=== PATIENT | female | born 1975 | race Caucasian/White ===

== ENCOUNTER 2022-02-20 15:15 | Outpatient (CLI) | payer OTHER, SELFPAY ==
[2022-02-20 21:56] LABS: Alkaline Phosphatase* 68 U/L (40-150); Calcium* 8.9 mg/dL (8.4-10.6)
== END 2022-02-20 15:16 | disposition home or self-care (01) ==
PROVIDERS: PCP Physician Assistant Medical; Visit Provider Physician Assistant Medical
DX: M27.9 Disease of jaws, unspecified (principal)
CPT/HCPCS: 82310; 84075

== ENCOUNTER 2022-03-04 15:14 | Outpatient (CLI) | payer OTHER, SELFPAY ==
--- NOTE | 2022-03-04 15:30 | CRLHL7_ITS ---
For Patients: As a result of the Century Cures Act, medical imaging exams and procedure reports are released immediately into your electronic medical record. You may view this report before your referring provider. If you have questions, please contact your health care provider. Indication: right jaw bone lesion, seen on dentist xray Technique: MRI facial bones without contrast. Sagittal T1, axial T2 with and without fat suppression, axial diffusion-weighted, coronal T1, coronal STIR, and postcontrast fat suppressed T1 weighted sequences following administration of 15 cc Dotarem IV contrast. Comparison: None Findings: Unremarkable MRI of the visualized portions of the brain. No hydrocephalus. No suspicious extra-axial collection. Normal calvarial and skullbase bone marrow signal. Unremarkable temporomandibular joints. There is a 1.2 x 0.6 x 1.2 cm (AP x TR x CC) well-circumscribed focus of T2 hypointense signal in the right anterior mandibular body along the lingual surface abutting the cortex (series 4, image 24). There is no associated bone marrow edema. Unremarkable sublingual glands, submandibular glands, and parotid glands the mastoid air cells are clear. The orbits and their contents are unremarkable. Expected intracranial vascular flow voids are preserved. The nasopharynx, oropharynx and hypopharynx are unremarkable. Mild prominence of the palatine tonsils. The vallecula, epiglottis, and soft palate are unremarkable. The larynx is unremarkable. No evidence of acute inflammation in the neck. Multilevel cervical spondylosis. No evidence of diffusion restriction. The nasal septum is relatively midline. Trace mucosal thickening in the maxillary sinuses. No pathologically enlarged lymph nodes. Trace mucosal thickening in the left ethmoid air cells. Impression: 1. There is a 1.2 cm T1 and T2 hypointense well-circumscribed lesion in the lingual aspect of the right anterior mandibular body without associated bone marrow edema or enhancement. Findings likely due to nonspecific sclerotic lesion with no associated cystic component or enhancing lesion favored to represent a benign process. This can be further characterized with CT facial bones per 2. Otherwise unremarkable MRI of the neck. Dictated by Jcarlos Chung MD @ 03/05/2022 11:17:50 AM (Electronically Signed)
== END 2022-03-04 15:15 | disposition home or self-care (01) ==
LOC: MRI 15:15
PROVIDERS: PCP Physician Assistant Medical; Visit Provider Physician Assistant Medical
DX: M89.9 Disorder of bone, unspecified (principal)
CPT/HCPCS: 70543

== ENCOUNTER 2022-03-20 10:07 | Outpatient (CLI) | payer OTHER, SELFPAY ==
[2022-03-20 14:10] LABS: Chloride* 108 mmol/L (96-114); Potassium* 4.4 mmol/L (3.6-5.1); Sodium* 140 mmol/L (135-149)
[2022-03-20 14:13] LABS: Blood Urea Nitrogen* 11 mg/dL (5-24); Carbon Dioxide* 29 mmol/L (20-32); Cholesterol* 145 mg/dL (90-199); Creatinine* 0.7 mg/dL (0.5-1.5); Estimated Glomerular Filt Rate 109 ml/min; Triglycerides* 62 mg/dL (40-149)
[2022-03-20 14:14] LABS: HDL Cholesterol* 53 mg/dL (>=50); LDL Cholesterol Calculated 80 mg/dL (<100)
[2022-03-20 14:29] LABS: Glucose* 92 mg/dL (60-115)
== END 2022-03-20 10:08 | disposition home or self-care (01) ==
PROVIDERS: PCP Physician Assistant Medical; Visit Provider Physician Assistant Medical
DX: Z00.00 Encounter for general adult medical examination without abnormal findings (principal); M27.9 Disease of jaws, unspecified; Z13.6 Encounter for screening for cardiovascular disorders
CPT/HCPCS: 80048; 80061

== ENCOUNTER 2022-03-28 12:48 | Outpatient (CLI) | payer OTHER, SELFPAY ==
--- NOTE | 2022-03-28 13:00 | CRLHL7_ITS ---
For Patients: As a result of the Century Cures Act, medical imaging exams and procedure reports are released immediately into your electronic medical record. You may view this report before your referring provider. If you have questions, please contact your health care provider. INDICATION: Further characterized right jaw lesion. TECHNIQUE: CT of the face without contrast. Coronal reconstructions are included. COMPARISON: Orbital MRI from 03/04/2022 FINDINGS: Re-demonstration of the lesion within the right anterior mandibular body, which measures up to 14 millimeters in diameter. It is diffusely sclerotic with irregular margins and no lytic/destructive change. No expansile component. The adjacent tooth roots are well situated. A smaller but similar focus of sclerosis is present within the left-sided posterior mandible. No acute osseous abnormalities involving the maxillofacial bones. The orbital contents are Normal in appearance. The sinonasal cavities are clear. The nasal septum is relatively midline. The visualized portions of the brain are normal in appearance. IMPRESSION: 1. Sclerotic lesions within the right and left mandible without any lytic/destructive change. These most likely reflect benign abnormalities with differential considerations including idiopathic osteosclerosis or bone island. 2. The paranasal sinuses are clear and there are no acute abnormalities involving the maxillofacial bones. Please note that all CT scans at this facility use dose modulation, iterative reconstruction, and/or weight-based dosing when appropriate to reduce radiation dose to as low as reasonably achievable. Dictated by Valente Romero MD @ 03/29/2022 12:56:45 PM (Electronically Signed)
== END 2022-03-28 12:49 | disposition home or self-care (01) ==
LOC: CT 12:48
PROVIDERS: PCP Physician Assistant Medical; Visit Provider Physician Assistant Medical
DX: M89.9 Disorder of bone, unspecified (principal)
CPT/HCPCS: 70486

== ENCOUNTER 2022-05-13 14:50 | Outpatient (CLI) | payer OTHER, SELFPAY ==
--- NOTE | 2022-05-13 15:00 | CRLHL7_ITS ---
For Patients: As a result of the Cures Act, medical imaging exams and procedure reports are released immediately into your electronic medical record. You may view this report before your referring provider. If you have questions, please contact your health care provider. BILATERAL SCREENING MAMMOGRAM WITH COMPUTER-AIDED DETECTION AND TOMOSYNTHESIS TECHNIQUE: CC and MLO views were obtained. These mammographic images have been obtained using full-field digital technique. These mammographic images were interpreted with the benefit of computer-aided detection. Breast tomosynthesis was used in this interpretation. COMPARISON FILM: 03/20/21, 03/30/18, 02/03/17. FINDINGS: The breasts are heterogeneously dense, which may obscure small masses. IMPRESSION: There is no radiographic evidence for malignancy. ASSESSMENT: BI-RADS Category 2: Benign RECOMMENDATION: Routine screening mammogram in 1 year. A lay language report of this examination will be provided to the patient. AVELINO LEONARD M.D. Diagnostic/Nuclear Medicine Radiologist [email or web address] Transcribed: 3:[address]/Dictated by: Avelino Leonard MD @ 05/14/2022 8:19:00 AM (Electronically Signed)
== END 2022-05-13 14:51 | disposition home or self-care (01) ==
LOC: MAMMO 14:51
PROVIDERS: PCP Physician Assistant Medical; Visit Provider Physician Assistant Medical
DX: Z12.31 Encounter for screening mammogram for malignant neoplasm of breast (principal); R92.2 Inconclusive mammogram
CPT/HCPCS: 77063; 77067

== ENCOUNTER 2022-12-17 08:33 | Outpatient (CLI) | payer OTHER, SELFPAY ==
--- NOTE | 2022-12-17 08:45 | CRLHL7_ITS ---
For Patients: As a result of the Cures Act, medical imaging exams and procedure reports are released immediately into your electronic medical record. You may view this report before your referring provider. If you have questions, please contact your health care provider. DIGITAL DIAGNOSTIC BILATERAL MAMMMOGRAM USING TOMOSYNTHESIS AND COMPUTER-AIDED DETECTION LEFT BREAST ULTRASOUND CLINICAL HISTORY: LEFT breast lump. COMPARISON: 05/13/2022, 03/20/2021, 04/23/2019. TECHNIQUE: Digital BILATERAL mammogram in four projections. Tomosynthesis and CAD utilized. Real-time ultrasound imaging of LEFT breast with imaging documentation. BREAST COMPOSITION: The breasts are heterogeneously dense, which may obscure small masses. FINDINGS: 3D spot compression CC/MLO mammogram images submitted along with BILATERAL 2D XCCL mammogram images. Nodular density is present within the LEFT breast corresponding the area of palpable concern. No architectural distortion. No adenopathy or suspicious calcifications bilaterally. Targeted LEFT breast ultrasound performed in the upper outer quadrant. At 12 o`clock 2 cm from the nipple there is a simple anechoic cyst with increased through-transmission measuring 2.9 x 1.5 x 2.7 cm. A similar simple cyst is present at 2 o`clock 2 cm from the nipple measuring 1.4 x 1.0 x 1.2 cm. IMPRESSION: Benign simple cysts LEFT breast. No evidence of malignancy. RECOMMENDATIONS: Annual BILATERAL screening mammography. Results and recommendations discussed with the patient. BI-RADS Category 2: Benign A lay language report of this examination will be provided to the patient. Dictated by Jcarlos Hernandez MD @ 12/18/2022 10:26:30 AM jj/Dictated by: Jcarlos Hernandez MD @ 12/18/2022 10:26:00 AM (Electronically Signed)
--- NOTE | 2022-12-17 09:15 | CRLHL7_ITS ---
For Patients: As a result of the Cures Act, medical imaging exams and procedure reports are released immediately into your electronic medical record. You may view this report before your referring provider. If you have questions, please contact your health care provider. PLEASE SEE DIGITAL DIAGNOSTIC BILATERAL MAMMOGRAM PERFORMED SAME DAY CRL:[email or web address] zelaya/Dictated by: Jcarlos Hernandez MD @ 12/18/2022 10:26:00 AM (Electronically Signed)
== END 2022-12-17 08:34 | disposition home or self-care (01) ==
LOC: MAMMO 08:34
PROVIDERS: PCP Physician Assistant Medical; Visit Provider Emergency Medicine
DX: N63.20 Unspecified lump in the left breast, unspecified quadrant (principal)
CPT/HCPCS: 76642; 77066; G0279

== ENCOUNTER 2022-12-26 09:04 | Outpatient (CLI) | payer OTHER, SELFPAY ==
--- NOTE | 2022-12-26 09:15 | CRLHL7_ITS ---
For Patients: As a result of the Century Cures Act, medical imaging exams and procedure reports are released immediately into your electronic medical record. You may view this report before your referring provider. If you have questions, please contact your health care provider. ULTRASOUND-GUIDED LEFT BREAST CYST ASPIRATION CLINICAL HISTORY: Painful cyst COMPARISON STUDIES: Ultrasound 12/17/2022 TECHNIQUE: Real-time ultrasound with image documentation was used for targeting the breast lesion. Ultrasound-guided cyst aspiration using 18 gauge needle. CONSENT and TIME OUT: The procedure, risks, and alternatives were explained to the patient and a consent was signed. [place] Protocol was followed including pre-procedure verification that relevant information/documentation was available, reviewed and properly matched to the patient; consent accurate and complete; and equipment and supplies available. Time Out was conducted just prior to starting procedure to verify the four required elements: patient identity, correct side/site marked (if applicable), procedure, relevant images/results properly labeled and displayed (if applicable). PROCEDURE: The patient was positioned supine on the ultrasound table. The breast was prepped with ChloraPrep. 8 cc of 1 percent lidocaine used for local anesthesia. Aspiration of cyst performed with 2.5 cc of fluid aspirated and discarded. Additional small cyst also aspirated. LATERALITY: Left breast LESION: Circumscribed anechoic cyst measuring 2.7 x 1.3 x 2.3 cm at 12 o`clock 2 cm from the nipple. Smaller cyst left breast 2 o`clock 2 cm from the nipple measuring 1.2 x 1.0 x 1.4 cm. IMPRESSION: Ultrasound-guided cyst aspiration x2. ACR not applicable Dictated by Jcarlos Hernandez MD @ 12/26/2022 12:07:00 PM (Electronically Signed)
== END 2022-12-26 09:05 | disposition home or self-care (01) ==
LOC: US 09:04
PROVIDERS: PCP Physician Assistant Medical; Visit Provider Physician Assistant Medical
DX: N63.20 Unspecified lump in the left breast, unspecified quadrant (principal); N60.02 Solitary cyst of left breast; R92.8 Other abnormal and inconclusive findings on diagnostic imaging of breast
CPT/HCPCS: 19000; 76942

== ENCOUNTER 2023-06-19 08:57 | Outpatient (CLI) | payer OTHER, SELFPAY ==
[2023-06-19 14:05] LABS: Chlamydia DNA Amplified* NOT DETECTED (No Detected); GC DNA Amplified* NOT DETECTED (No Detected)
== END 2023-06-19 08:58 | disposition home or self-care (01) ==
LOC: LKVREF 08:58
PROVIDERS: PCP Physician Assistant Medical; Visit Provider Physician Assistant Medical
DX: Z11.3 Encounter for screening for infections with a predominantly sexual mode of transmission (principal)
CPT/HCPCS: 87491; 87591

== ENCOUNTER 2023-06-25 08:35 | Outpatient (CLI) | payer OTHER, SELFPAY | END 2023-06-25 08:36 | disposition home or self-care (01) | LOC: NFLDREF 07-08 21:02 | PROVIDERS: PCP Physician Assistant Medical; Referring Provider Physician Assistant Medical; Visit Provider Physician Assistant Medical | DX: Z13.220 Encounter for screening for lipoid disorders (principal); Z13.228 Encounter for screening for other metabolic disorders; Z13.29 Encounter for screening for other suspected endocrine disorder | CPT/HCPCS: 80053; 80061; 84443 ==

== ENCOUNTER 2023-07-02 13:51 | Outpatient (CLI) | payer OTHER, SELFPAY ==
--- NOTE | 2023-07-02 14:00 | US_ITS ---
Patient: DENIS CHAVEZ Facility:?[facility] Patient ID:?[id number] Site Patient ID:?[id number]. Site :?[id number] Study:?US-Pelvis TRANSABDOMINAL AND TRANSVAGINAL-07/02/2023 2:25:27 PM Ordering Physician:?RICH GORDON Final Report: INDICATION: Irregular menstruation COMPARISON: none TECHNIQUE: 2D anderson scale and color Doppler images were acquired of the pelvis using a transabdominal and transvaginal approach. FINDINGS: Sonographic images demonstrate a normal size and smooth outer contour of the uterus. Uterus measures 11.9 cm in length by 5.2 cm in AP diameter by 6.6 cm in transverse dimension. Cystic area within right uterine fundal myometrium measuring 9 x 11 x 9 millimeters considered incidental. The endometrial lining measures 8 mm in composite thickness. The right ovary is not visualized and the left ovary measures 4.3 x 1.7 x 3.3 cm. The left ovary demonstrates normal arterial and venous blood flow on color Doppler analysis. There are no suspicious fluid collections within the cul-de-sac. IMPRESSION: 8 millimeter endometrial thickness. No endometrial fluid. 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 Dictated by Jcarlos Hernandez MD @ 07/03/2023 9:01:35 AM Signed by:?Jcarlos Hernandez MD @07/03/2023 9:01:35 AM (Electronic Signature)
== END 2023-07-02 13:52 | disposition home or self-care (01) ==
PROVIDERS: PCP Physician Assistant Medical; Visit Provider Physician Assistant Medical
DX: N92.6 Irregular menstruation, unspecified (principal); N85.8 Other specified noninflammatory disorders of uterus
CPT/HCPCS: 76830; 76856